=== PATIENT | female | born 1960 | race Caucasian/White ===

== ENCOUNTER 2018-10-12 11:19 | Emergency (ER) | payer OTHER ==
[2018-10-12 11:41] VITALS: TEMP 98.2; BMI 21.9
[2018-10-12] MEDS ORDERED: SODIUM CHLORIDE 0.9% 1000 ML INFUS.BAG IV ONE (12:25)
--- NOTE | 2018-10-12 12:39 | PDOC ---
Documentation entered by Francisca Hopkins SCRIBE, acting as scribe for Ebony Henry MD. Ebony Henry MD: This documentation has been prepared by the Sandeep rincon Brenda, SCRIBE, under my direction and personally reviewed by me in its entirety. I confirm that the documentation accurately reflects all work, treatment, procedures, and medical decision making performed by me. History of Present Illness - General Chief Complaint: Pain Stated Complaint: R/O UTI Time Seen by Provider: 10/12/18 12:08 History Source: Patient Exam Limitations: Language Barrier - History of Present Illness Initial Comments: 10/12/18 12:34 The patient is a year old female, with a significant PMH of sjogrens syndrome, Lupus, immunosuppression, NIDDM, TIA, hemorrhoids, fibromyalgia, hypothyroid, CAD, autoimmune thyroiditis, TIA, rheumatoid arthritis, pseudotumor cerebri, platelet aggregation disorder (3 blood transfusion, platelet transfusions), who presents to the emergency department with 1 week of vaginal and rectal bleeding. As per patient, she was sent to the [facility] from [facility], 2 months ago, who advised her to get a second opinion due to the inability to further treatments, and for better medical care. The patient reports seeing a Clerk Entry [employer] while being in [place], who stated that the excessive bleeding was related to medications. As per patient, her normal platelet levels ly around 100. The patient denies chest pain, shortness of breath, headache and dizziness. Denies fever, chills, nausea, vomiting, diarrhea and constipation. Allergies: Penicillins Past surgical history: Hysterectomy. Social history: No tobacco use or alcohol use. PCP: Currently does not have one, possibly in [facility]. Medications: Protonix pantoprazole 40 mg phenergan 25 mg Cell cept mycophenolate 500 mg Plaquenil hydroxy chloroquine 200 mg predinosone 20 mg 5 mg fiorcet Butabital 50 mg tencon 50 305 mg gabapentin 800 mg singulair montelukast HCL 10 mg glucophase metformin HCL 500 mg mezclizine HCL 25 mg banofen 50 mg sertiline 100 mg alprazolan 1 mg clonazepan 0.5mg zoldipen tartrate 5mg estazolam 2 mg oxycodone - acetaminophen Past History - Past Medical History Allergies/Adverse Reactions: Allergies Allergy/AdvReac Type Severity Reaction Status Date / Time Penicillins Allergy Swelling Verified 10/12/18 11:57 COPD: No Diabetes: Yes HTN: (hypo) Other medical history: Lupus, - Immunization History Immunization Up to Date: No - Suicide/Smoking/Psychosocial Hx Smoking History: Never smoked Hx Alcohol Use: No Drug/Substance Use Hx: No Review of Systems - Review of Systems Able to Perform ROS?: Yes Comments:: 10/12/18 12:34 GENERAL/CONSTITUTIONAL: No fever or chills. No weakness. HEAD, EYES, EARS, NOSE AND THROAT: No change in vision. No ear pain or discharge. No sore throat. CARDIOVASCULAR: No chest pain or shortness of breath. RESPIRATORY: No cough, wheezing, or hemoptysis. GASTROINTESTINAL: (+) rectal Bleeding. No nausea, vomiting, diarrhea or constipation. GENITOURINARY: (+) Vaginal bleeding. No dysuria, frequency, or change in urination. MUSCULOSKELETAL: No joint or muscle swelling or pain. No neck or back pain. SKIN: No rash NEUROLOGIC: No headache, vertigo, loss of consciousness, or change in strength/ sensation. ENDOCRINE: No increased thirst. No abnormal weight change. HEMATOLOGIC/LYMPHATIC: No anemia, easy bleeding, or history of blood clots. ALLERGIC/IMMUNOLOGIC: No hives or skin allergy. *Physical Exam - Vital Signs Last Vital Signs Temp Pulse Resp BP Pulse Ox 98.2 F 82 16 88/64 L 96 10/12/18 11:35 10/12/18 11:35 10/12/18 11:35 10/12/18 11:35 10/12/18 11:35 - Physical Exam Comments: 10/12/18 12:36 awake alert lungs clear bilat heart rrr no mrg ab soft nt nd ext wwp no edema. no calf tenderness. skin warm and dry. nuero alert oriented x 3. 10/12/18 14:55 vaginal exam dry external labial skin, no vaginal blood , rectum no rectal blood. ED Treatment Course - LABORATORY CBC & Chemistry Diagram: 10/12/18 12:30 10/12/18 12:30 Medical Decision Making - Medical Decision Making 10/12/18 12:37 58 yo F wit h/o sjogrens, RA SLE, prior tia, cerebritis, psuedotumor, and dysfunctional platelets here with c/o vaginal and rectal bleeding. does have h/ o prior bleeding needing transfusion. recently moved to [facility] from [place] 08/2018 . hasn't established care in [place] yet. does feel dizzy. h/o prior hystercetomy. h/o hemorrhoids. plan labs type and screen, pelvic and rectal exam. pt will likley require admission for transfusion, hypotensive in triage. 10/12/18 14:17 pt cbc normal platelets normal. 10/12/18 15:43 t labs normal troponin negative. ua negative for infection. pt baseline bp 90' s systolic. given fu appointment [facility], will call pt. also given referral for rheumatology, gynecology, *DC/Admit/Observation/Transfer Diagnosis at time of Disposition: Hemorrhoids, Dizziness - Discharge Dispostion Disposition: HOME Decision to Admit order: No - Referrals Referrals: Ivan Torres MD [Staff Physician] - Andrei Arora MD [Staff Physician] - Felix Butterfield MD [Staff Physician] - - Patient Instructions Printed Discharge Instructions: Anemia: How Food and Vitamins Can Help Additional Instructions: you need to follow up with a pressfitter see referral information for dr Arora, you should also see internal medicine doctor. [facility] will call to arrange an appointment with you in the next week. return for any worsening dizziness, fever chest pain or any concerns. - Post Discharge Activity
[2018-10-12 13:20] LABS: BASO % 0.5 % (0-2.0); EOS % 0.3 % (0-4.5); HEMOGLOBIN 13.4 GM/dL (10.7-15.3); LYMPH % 17.2 % (8-40); MCH 31.3 pg (25.7-33.7); MCHC 34.3 g/dl (32.0-36.0); MEAN CELL VOLUME 91.1 fl (80-96); MEAN PLT VOLUME 10.3 fl (7.5-11.1); MONO % 3.9 % (3.8-10.2); NEUT % 78.1 % (42.8-82.8); PLATELET COUNT 192 K/MM3 (134-434); RBC 4.28 M/mm3 (3.60-5.2); RDW 13.1 % (11.6-15.6); WHITE BLOOD COUNT 6.3 K/mm3 (4.0-10.0)
[2018-10-12 13:22] LABS: INR 1.05 (0.83-1.09); PROTHROMBIN TIME (PATIENT) 12.4 SEC (9.7-13.0)
[2018-10-12 13:24] LABS: ACTIVATED PTT 35.6 SECONDS (25.2-36.5)
[2018-10-12 13:31] LABS: ALBUMIN 4.4 g/dl (3.4-5.0); BILIRUBIN,TOTAL 0.4 mg/dL (0.2-1); BLOOD UREA NITROGEN 11.5 mg/dL (7-18); CALCIUM 9.1 mg/dL (8.5-10.1); CREATININE 0.8 mg/dL (0.55-1.3); POTASSIUM 4.1 mmol/L (3.5-5.1); TOT PROT 6.8 g/dl (6.4-8.2)
[2018-10-12 15:13] LABS: URINE APPEARANCE CLEAR; URINE BILIRUBIN NEGATIVE (NEGATIVE); URINE COLOR YELLOW; URINE GLUCOSE (UA) NEGATIVE (NEGATIVE); URINE KETONE NEGATIVE (NEGATIVE); URINE LEUK ESTERASE NEGATIVE (NEGATIVE); URINE NITRITE NEGATIVE (NEGATIVE); URINE PROTEIN NEGATIVE (NEGATIVE); URINE UROBILINOGEN 0.2 mg/dL (0.2-1.0)
[2018-10-12 15:44] VITALS: BP 97/65; PULSE 79
== END 2018-10-12 16:26 | disposition home or self-care (01) ==
LOC: JER 11:19
PROC: 3E0337Z Introduction of Electrolytic and Water Balance Substance into Peripheral Vein, Percutaneous Approach (ICD-10-PCS; principal; 2018-10-12)
DX: R42 Dizziness and giddiness (principal); K64.9 Unspecified hemorrhoids; M06.9 Rheumatoid arthritis, unspecified; M32.9 Systemic lupus erythematosus, unspecified; E03.9 Hypothyroidism, unspecified; E11.9 Type 2 diabetes mellitus without complications
CPT/HCPCS: 36415; 80053; 81003; 84484; 85025; 85610; 85730; 86850; 86900; 86901; 87086; 99283-25; J7030

== ENCOUNTER 2018-11-14 11:42 | Observation (INO) | payer OTHER | END 2018-11-16 10:45 | disposition home or self-care (01) | LOC: JER 11:42 → JERBED 15:24 → J5S 20:11 → J4W 20:24 ==

== ENCOUNTER 2019-10-20 17:13 | Inpatient (IN) | payer OTHER ==
[2019-10-20] MEDS ORDERED: ACETAMINOPHEN 1000 MG/100 ML VIAL (NON FORMULARY) IVPB ONE (17:54)
--- NOTE | 2019-10-20 18:03 | PDOC ---
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 Endorses mildly blurring of vision. Denies f/c. Denies new numbness, tingling, weakness. Denies urinary and bowel incontinence. Was seen by eye doctor / ophtho 4 days prior and found to have eye findings concerning for increased ICP. Dr. Sarmiento is pt's neuro. PCN allergy. Past History - Medical History Allergies/Adverse Reactions: Allergies Allergy/AdvReac Type Severity Reaction Status Date / Time gluten Allergy Verified 10/20/19 17:14 Penicillins Allergy Swelling Verified 10/20/19 17:14 Home Medications: Ambulatory Orders Acetaminophen/Caffeine/Butalb [Fioricet Tablets] 1 tab PO Q4H PRN 10/12/18 Baclofen 50 mg PO DAILY 10/12/18 Butalbital/Acetaminophen [Tencon 50-325 mg Tablet] 1 each PO DAILY 10/12/18 Clonazepam 0.5 mg PO DAILY 10/12/18 Gabapentin 800 mg PO DAILY 10/12/18 Meclizine HCl 25 mg PO DAILY 10/12/18 Metformin HCl [Glucophage] 500 mg PO DAILY 10/12/18 Montelukast Sodium [Singulair] 10 mg PO DAILY 10/12/18 Mycophenolate Mofetil [Cellcept] 500 mg PO DAILY 10/12/18 Pantoprazole Sodium [Protonix] 40 mg PO DAILY 10/12/18 Prednisone 5 mg PO DAILY 10/12/18 Promethazine HCl [Phenergan] 25 mg RC DAILY 10/12/18 Zolpidem Tartrate [Ambien] 5 mg PO HS 10/12/18 Valacyclovir HCl [Valtrex -] 500 mg PO BID #8 tablet 11/15/18 predniSONE [Deltasone -] 50 mg PO DAILY #10 tablet 11/15/18 COPD: No Diabetes: Yes HTN: (hypo) - Surgical History Neurologic Surgery: Yes (SHUNT) - Immunization History Immunization Up to Date: No - Psycho-Social/Smoking History Smoking History: Never smoked Have you smoked in the past 12 months: No - Substance Abuse Hx (Audit-C & DAST Scrn) How often the patient has a drink containing alcohol: Never Score: In Men: 4 or > Positive; In Women: 3 or > Positive: 0 Screen Result (Pos requires Nsg. Audit-10AR): Negative In the last yr the pt used illegal drug/Rx for NonMed reason: No Score: Yes response is considered Positive: 0 Screen Result (Positive result requires Nsg. DAST-10): Negative Review of Systems - Review of Systems Comments:: 10/20/19 22:19 CONSTITUTIONAL: Denies F / C HEENT: + headache, mild visual blurring (x1 week) RESP: Denies SOB, cough, orthopnea, RUIZ CARD: Denies chest pain, palpitations GI: + n / v : Denies dysuria, hematuria, frequency NEURO: + chronic left sided motor and sensory deficits s/p CVA MSK: Denies back pain SKIN: Denies rashes *Physical Exam - Vital Signs Last Vital Signs Temp Pulse Resp BP Pulse Ox 98.1 F 82 18 99/60 99 10/20/19 17:15 10/20/19 17:15 10/20/19 17:15 10/20/19 17:15 10/20/19 17:15 - Physical Exam 10/20/19 22:20 GEN: Well appearing, NAD, comfortable. AAOx3. HEENT: NC/AT, EOMI, PERRL, CN II-XII grossly intact EXCEPT CN V no sensation on left. No facial asymmetry. Moist mucous membranes. Normal voice. Supple neck w/ FROM. CV: S1/S2, RRR, no m/r/g LUNG: CTAB, no wheezes, crackles, rales, rhonchi. GI: mild epigastric ttp o/w soft, ndnt, +BS, no guarding, no rebound MSK: No obvious deformities of all extremities. SKIN: Warm, dry, no rashes appreciated. PSYCH: Normal mood and affect. NEURO: moving all extremities, 3/5 strength on the left UE and LE with 5/5 strength UE and LE; these are nonacute changes. Sensation diminished on the left, nonacute. Medical Decision Making - Medical Decision Making 10/20/19 22:20 10/20/19 17:54 59F w/ IIH s/p LP shunt sent in by PCP for 3 weeks of worsening headache and n/v today. Endorses mild vision blurring. Neuro exam unremarkable except for old deficits. Concerning presenting for elevated ICP. Consider headache. Unlikely infectious etiology. CT head Basic labs, coags Headache cocktail need to find out who placed LP shunt 10/20/19 19:15 signed out to night team Discharge - Discharge Information Problems reviewed: Yes Clinical Impression/Diagnosis: Headache - Follow up/Referral Referrals: Omari Orr MD [Primary Care Provider] - - Patient Discharge Instructions - Post Discharge Activity
--- NOTE | 2019-10-20 18:50 | PDOC ---
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 Sarmiento for 3 weeks of constant worsening apical headache with new onset nausea and vomiting today. Endorses mildly blurring of vision. Denies f/c. Denies new numbness, tingling, weakness. Denies urinary and bowel incontinence. 10/20/19 19:18 - Physicial Exam PE: 10/20/19 18:49 Agree with the resident's HPI and PE as documented in the electronic medical record. NAD, well appearing, Alert, oriented appropriately, CN II-XII grossly intact. EOMI, PERRL, nl conjunctiva, anicteric; neck supple. lungs clear, RRR, abdomen soft nontender. no rebound, guarding. Back nontender. midline lumbar scar. ARIZA x4, no focal neuro deficits. No peripheral edema. normal color for ethnicity, WWP. Strength prox and distally 4/5 in LUE (chronic). Sensation decreased in LLE (chronic). ARIZA x4. No cerebellar signs, no dysmetria, bilateral finger to nose and heel to villalba equal and symmetric. Speech clear. 10/20/19 19:06 10/20/19 19:18 - Medical Decision Making 10/20/19 18:49 Vital Signs Temp Pulse Resp BP Pulse Ox 98.1 F 82 18 99/60 99 10/20/19 17:15 10/20/19 17:15 10/20/19 17:15 10/20/19 17:15 10/20/19 17:15 DDX headache: migraine, tension, cluster headache, SAH, CVA, head bleed/ICH. hydrocephalus. MDM: The patient presents with an acute onset headache for 3 weeks in duration. Patient has no past history of headaches. There is not a history of anticoagulation, trauma, , cancer or immunocompromised state. Mental status was normal, no neurological deficits were noted. IV was placed and analgesia given , monitor sx 10/20/19 18:[address] no intracranial pathology is noted. No interval change from prior CAT scan. There is no ventricular catheter noted. Stable pituitary gland pt does not have vp respiratory shunt, likely lumbar shunt as she points to her lower back likely a lumbar drain? s/o to Dr Kirk pending labs/eval, possibly LP, neuro/NSG consult 10/21/19 07:40 Discharge - Discharge Information Problems reviewed: Yes Clinical Impression/Diagnosis: Headache Qualifiers: Headache type: unspecified Headache chronicity pattern: unspecified pattern Intractability: intractable Qualified Code(s): R51 - Headache Condition: Fair - Follow up/Referral - Patient Discharge Instructions - Post Discharge Activity
[2019-10-20] MEDS ORDERED: ACETAMINOPHEN INJECTION 100 ML IVPB ONE (19:10)
[2019-10-20] MEDS ORDERED: METOCLOPRAMIDE HCL INJECTION 10 MG/2 ML VIAL IVPUSH ONE (19:17)
[2019-10-20] MEDS ORDERED: METOCLOPRAMIDE HCL INJECTION 10 MG/2 ML VIAL ONE (19:57)
[2019-10-20] MEDS ORDERED: PROCHLORPERAZINE INJECTION 10 MG/2 ML VIAL IVPB ONE (20:49)
[2019-10-20] MEDS ORDERED: PROCHLORPERAZINE INJECTION 10 MG/2 ML VIAL ONE (21:12)
--- NOTE | 2019-10-20 21:16 | PDOC ---
*Physical Exam - Vital Signs Last Vital Signs Temp Pulse Resp BP Pulse Ox 98.1 F 86 18 116/72 99 10/20/19 17:15 10/20/19 20:41 10/20/19 20:41 10/20/19 20:41 10/20/19 20:41 ED Treatment Course - LABORATORY CBC & Chemistry Diagram: 10/21/19 01:30 10/21/19 01:30 - Medications Given in the ED: ED Medications Discontinued Medications Generic Name Dose Route Start Last Admin Trade Name Paige PRN Reason Stop Dose Admin Acetaminophen 1,000 mg 10/20/19 17:54 10/20/19 19:12 Ofirmev Injection - IVPB 10/20/19 17:55 1,000 mg ONCE ONE Administration Diphenhydramine HCl 12.5 mg 10/20/19 19:40 10/20/19 20:16 Benadryl Injection - IVPB 10/20/19 19:41 12.5 mg ONCE ONE Administration Metoclopramide HCl 10 mg 10/20/19 19:17 10/20/19 20:16 Reglan Injection - IVPUSH 10/20/19 19:18 10 mg ONCE ONE Administration Medical Decision Making - Medical Decision Making Pt was signed out by day team 59F PMH Idiopathic intracranial hypertension s/p LP shunt, SLE, sjogrens, 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 Was seen by eye doctor and told to have swollen capillaries b/l and eye exam suggestive of increased pressure. States that she started having similar headaches 12 years ago, was seen by doctor in [place] where she received 5 therapeutic lumbar punctures which mildly improved headaches. 7 years ago, she saw a different physician who performed a LP shunt with improvement in symptoms. States that she gets occasional headaches, milder in intensity that improve with over the counter pain medication. However, her current episode is described as worsening, not improved with OTC pain medications, a/w change in vision, and n/v today. 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 Archer who recommended Diamox 250mg BID, dexamethasone 6mg, did not recommend lumbar puncture. Pt follows with Dr. Sarmiento Pt states minimal improvement with compazine, will admit pt for intractable he adache. Pt agreed with plan. Disposition Admit Discharge - Discharge Information Problems reviewed: Yes Clinical Impression/Diagnosis: Headache Qualifiers: Headache type: unspecified Headache chronicity pattern: unspecified pattern Intractability: intractable Qualified Code(s): R51 - Headache Condition: Fair - Follow up/Referral - Patient Discharge Instructions - Post Discharge Activity
[2019-10-20] MEDS ORDERED: DEXAMETHASONE SOD PHOSPHATE 10 MG/1 ML VIAL IVPUSH ONE (23:08)
[2019-10-21] MEDS ORDERED: DEXAMETHASONE SOD PHOSPHATE 10 MG/1 ML VIAL ONE (00:17)
--- NOTE | 2019-10-21 01:22 | PN ---
Teaching Attending Note Name of Resident: Marek Woo ATTENDING PHYSICIAN STATEMENT I saw and evaluated the patient. I reviewed the resident's note and discussed the case with the resident. I agree with the resident's findings and plan as documented. SUBJECTIVE: Patient is a 59 year old woman with a PMH of Idiopathic intracranial hypert ension (s/p LP shunt), Penicillin allergy, SLE, Wren's palsy, Right side hearing impairment, Sjogren's syndrome and CVA with residual left hemiparesis sent by her PCP for 3 weeks of constant worsening apical headache with new onset nausea and vomiting today. Also has associated blurry vision L > R (although mildly improved with glasses) for 1 week. Was seen by eye doctor and told to have bilateral swollen capillaries and eye exam suggestive of increased pressure. States that she started having similar headaches 12 years ago, was seen by doctor in [place] where she received 5 therapeutic lumbar punctures which mildly improved headaches. Seven years ago, she saw a different physician who performed a LP shunt with improvement in symptoms. States that she gets occasional headaches, milder in intensity that improve with over the counter pain medication. However, her current episode is described as worsening, not improved with OTC pain medications. Patient denies chest pain, shortness of breath, abdominal pain, palpitations, dizziness, fever, chills, diarrhea, constipation, dysuria, frequency, urgency, melena, hematochezia or hematuria. Denies alcohol, tobacco or illicit drug use. No sick contacts or recent travels. Family history is unremarkable. OBJECTIVE: Alert Vital Signs Period Temp Pulse Resp BP Sys/Ponce Pulse Ox Last 24 Hr 98.1 F 82-86 18-18 99-116/60-72 99-99 HEENT: No Jaundice, eye redness or discharge, PERRLA, Left facial droop, Normocephalic, atraumatic. External ears are normal; right side hearing impaired. No nasal discharge. Neck: Supple, nontender. No palpable adenopathy or thyromegaly. No JVD Chest: Good effort. Clear to auscultation and percussion. Heart: Regular. No S3, rub or murmur Abdomen: Not distended, soft, nontender and no HSM. No rebound or guarding. Normal bowel sounds. Ext: Peripheral pulses intact. No leg edema. Skin: Warm and dry. No petechiae, rash or ecchymosis. Neuro: Alert. Oriented x3. Left hemiparesis with decreased sensation. Psych: Appropriate mood and affect. Good insight. Home Medications Medication Instructions Recorded Acetaminophen/Caffeine/Butalb 1 tab PO Q4H PRN 10/12/18 [Fioricet Tablets] Baclofen 50 mg PO DAILY 10/12/18 Butalbital/Acetaminophen [Tencon 1 each PO DAILY 10/12/18 50-325 mg Tablet] Clonazepam 0.5 mg PO DAILY 10/12/18 Gabapentin 800 mg PO DAILY 10/12/18 Meclizine HCl 25 mg PO DAILY 10/12/18 Metformin HCl [Glucophage] 500 mg PO DAILY 10/12/18 Montelukast Sodium [Singulair] 10 mg PO DAILY 10/12/18 Mycophenolate Mofetil [Cellcept] 500 mg PO DAILY 10/12/18 Pantoprazole Sodium [Protonix] 40 mg PO DAILY 10/12/18 Prednisone 5 mg PO DAILY 10/12/18 Promethazine HCl [Phenergan] 25 mg RC DAILY 10/12/18 Zolpidem Tartrate [Ambien] 5 mg PO HS 10/12/18 Valacyclovir HCl [Valtrex -] 500 mg PO BID #8 tablet 11/15/18 predniSONE [Deltasone -] 50 mg PO DAILY #10 tablet 11/15/18 Current Medications Generic Name Dose Route Start Last Admin Trade Name Freq PRN Reason Stop Dose Admin Acetazolamide 250 mg 10/21/19 23:09 Diamox - PO 10/21/19 23:10 ONCE ONE ASSESSMENT AND PLAN: 1. Intractable headache/Idiopathic intracranial hypertension - No evidence of acute intracranial pathology on noncontrast head CT scan. No venticular catheter noted!. Will get serum prolactin level to rule out enlargement of the pituitary gland. ER staff prescribed Tylenol, Benadryl, Dexamethasone, Diamox, Reglan and Compazine for the patient. EKG shows NSR at 65/minute and QTc [address]-T wave changes. Initial troponin is negative. Will get brain MRI with MR venography, consult Opthalmology, consult Interventional Radiology for lumbar puncture, treat with Diamox 500 mg bid, use Tylenol for pain control, Compazine for nausea, do neurochecks and implement fall/aspiration/seizure precautions. Consult PT/Neurology. CMP and CBC from 10/13/2019 were normal. Will get repeat CBC, CMP; get CXR and urinalysis. Viral testing for COVID-19 ordered and patient placed on airborne, droplet and contact isolation. 2. DVT prophylaxis - Lovenox 40 mg SQ q 24 hours. 3. Advance directives - Full code
--- NOTE | 2019-10-21 01:47 | HP ---
CHIEF COMPLAINT: intractible ocular headaches PCP: HISTORY OF PRESENT ILLNESS: Ms. 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 Pseudotumor cerebrii s/p shunt, lupus, sjogrens, RA presenting to the ED for a complaint of ocular headaches for the past [address] Sarmiento who recommended preforming a shunt study but was delayed due to insurance approval and suggested arrival to the ED for neurological work up. The patient reports loss of peripheral vision and blurry vision that has progressed. She reports seeing an opthamologist and received results for her eye exam but does not know the final results. The patient denies any progressive neurological weakness aside from the L sided weakness secondary to CVA. The patient reports multiple episodes of nausea and vomiting secondary to headache. AOX4, patient states she cannot move her eyes laterally. Her headache does not go away denies blurry vision or progressive vision loss. The patient endorses greater symptomatic relief in her pain with ED treatment of acetazolamide, diamox, and clompazine . ER course was notable for: (1) Head Ct - negative for acute pathology (2) (3) Recent Travel: PAST MEDICAL HISTORY: PAST SURGICAL HISTORY: 28 years ago she received a hysterectomy 6 years ago she received shunt for increased intra cranial pressure in [place] Social History: Smoking: none Alcohol: none Drugs: none Allergies gluten Allergy (Verified 10/20/19 17:14) Penicillins Allergy (Verified 10/20/19 17:14) Swelling HOME MEDICATIONS: Home Medications Medication Instructions Recorded Acetaminophen/Caffeine/Butalb 1 tab PO Q4H PRN 10/12/18 [Fioricet Tablets] Baclofen 50 mg PO DAILY 10/12/18 Butalbital/Acetaminophen [Tencon 1 each PO DAILY 10/12/18 50-325 mg Tablet] Clonazepam 0.5 mg PO DAILY 10/12/18 Gabapentin 800 mg PO DAILY 10/12/18 Meclizine HCl 25 mg PO DAILY 10/12/18 Metformin HCl [Glucophage] 500 mg PO DAILY 10/12/18 Montelukast Sodium [Singulair] 10 mg PO DAILY 10/12/18 Mycophenolate Mofetil [Cellcept] 500 mg PO DAILY 10/12/18 Pantoprazole Sodium [Protonix] 40 mg PO DAILY 10/12/18 Prednisone 5 mg PO DAILY 10/12/18 Promethazine HCl [Phenergan] 25 mg RC DAILY 10/12/18 Zolpidem Tartrate [Ambien] 5 mg PO HS 10/12/18 Valacyclovir HCl [Valtrex -] 500 mg PO BID #8 tablet 11/15/18 predniSONE [Deltasone -] 50 mg PO DAILY #10 tablet 11/15/18 REVIEW OF SYSTEMS CONSTITUTIONAL: Absent: fever, chills, diaphoresis, generalized weakness, malaise, loss of appetite, weight change CARDIOVASCULAR: Absent: chest pain, syncope, palpitations, irregular heart rate, lightheadedness, peripheral edema RESPIRATORY: Absent: cough, shortness of breath, dyspnea with exertion, orthopnea, wheezing, stridor, hemoptysis GASTROINTESTINAL: Absent: abdominal pain, abdominal distension, nausea, vomiting, diarrhea, constipation, melena, hematochezia GENITOURINARY: Absent: dysuria, frequency, urgency, hesitancy, hematuria, flank pain, genital pain MUSCULOSKELETAL: Absent: myalgia, arthralgia, joint swelling, back pain, neck pain SKIN: Absent: rash, itching, pallor NEUROLOGIC: headache, L sided residual weakness PHYSICAL EXAMINATION Vital Signs - 24 hr 10/20/19 10/20/19 17:15 20:41 Temperature 98.1 F Pulse Rate 82 Pulse Rate [ 86 Left] Respiratory 18 18 Rate Blood Pressure 99/60 Blood Pressure 116/72 [Left Arm] O2 Sat by Pulse 99 99 Oximetry (%) GENERAL: Awake, alert, and fully oriented, in no acute distress. HEAD: Normal with no signs of trauma. LUNGS: Breath sounds equal, clear to auscultation bilaterally. No wheezes, and no crackles. No accessory muscle use. HEART: Regular rate and rhythm, normal S1 and S2 without murmur, rub or gallop. ABDOMEN: Soft, nontender, not distended, normoactive bowel sounds, no guarding, no rebound, no masses. No hepatomegaly or splenomegaly. MUSCULOSKELETAL: Normal range of motion at all joints. No bony deformities or tenderness. No CVA tenderness. UPPER EXTREMITIES: 2+ pulses, warm, well-perfused. No cyanosis. No clubbing. No peripheral edema. LOWER EXTREMITIES: 2+ pulses, warm, well-perfused. No calf tenderness. No peripheral edema. NEUROLOGICAL: Cranial nerves II-XII intact. Normal speech. headache, L sided residual weakness ASSESSMENT/PLAN: Ms. 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 Pseudotumor cerebrii s/p shunt, lupus, sjogrens, RA presenting to the ED for a complaint of ocular headaches for the past [address] Sarmiento who recommended preforming a shunt study but was delayed due to insurance approval and suggested arrival to the ED for neurological work up. 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 No venticular catheter noted!. Will get serum prolactin level to rule out enlargement of the pituitary gland. - ED Spoke with Dr. Pedersen who recommended Diamox 250mg BID, dexamethasone 6mg, did NOT recommend lumbar puncture - ER staff prescribed Tylenol, Benadryl, Solumedrol, Diamox, Reglan and Compazine for the patient. - mri W MR VENOGRAPHY ordered - day team needs to bring opthamologist to evaluate findings - diamox 500bid - decadron dcd - UA - consulted dr pedersen for suggestions about LP - continue tylenol and compazine Viral testing for COVID-19 ordered and patient placed on airborne, droplet and contact isolation. 2. DVT prophylaxis - Lovenox 40 mg SQ q 24 hours. 3. Advance directives - Full code ATTENDING PHYSICIAN STATEMENT I saw and evaluated the patient. I reviewed the resident's note and discussed the case with the resident. I agree with the resident's findings and plan as documented. SUBJECTIVE: OBJECTIVE: ASSESSMENT AND PLAN:
[2019-10-21 02:01] LABS: BASO % 0.8 % (0-2.0); EOS % 0.7 % (0-4.5); HEMATOCRIT 41.7 % (32.4-45.2); HEMOGLOBIN 13.7 GM/dL (10.7-15.3); LYMPH % 37.4 % (8-40); MCH 30.5 pg (25.7-33.7); MCHC 32.8 g/dl (32.0-36.0); MONO % 5.5 % (3.8-10.2); NEUT % 55.6 % (42.8-82.8); PLATELET COUNT 199 K/MM3 (134-434); RBC 4.48 M/mm3 (3.60-5.2); RDW 13.5 % (11.6-15.6); WHITE BLOOD COUNT 4.6 K/mm3 (4.0-10.0)
[2019-10-21 02:28] LABS: BILIRUBIN,TOTAL 0.3 mg/dL (0.2-1); CALCIUM 9.5 mg/dL (8.5-10.1); CREATININE 1.1 mg/dL (0.55-1.3); POTASSIUM 3.8 mmol/L (3.5-5.1); TOT PROT 7.5 g/dl (6.4-8.2)
[2019-10-21 02:43] LABS: BLOOD UREA NITROGEN 18.2 mg/dL (7-18)
[2019-10-21 07:40] VITALS: BMI 21.4
[2019-10-21] MEDS ORDERED: PT OWN MED DRAWER 7, Y5N ONE (08:56)
[2019-10-21] MEDS: ENOXAPARIN NA (PORCINE) 40 MG/0.4 ML DISP.SYRIN SQ SCH (09:29)
[2019-10-21] MEDS ORDERED: oxyCODONE HCL 5 MG TABLET PO PRN (12:15)
--- NOTE | 2019-10-21 12:16 | CON.NEURO ---
Consult Consult Specialty:: [facility] Reason for Consultation:: DAVIS - History of Present Illness History of Present Illness: 59 year sold woman with history of 1. ch headache on Diamopx ?? B Intracranial hypertension not obese older than usual 20-40 comes in with intarcatable headcahe Head 2. DM 3. 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 Endocrine: Yes: Diabetes Mellitus - Alcohol/Substance Use Hx Alcohol Use: No - Smoking History Smoking history: Never smoked Have you smoked in the past 12 months: No Home Medications - Allergies Allergies/Adverse Reactions: Allergies Allergy/AdvReac Type Severity Reaction Status Date / Time gluten Allergy Verified 10/20/19 17:14 Penicillins Allergy Swelling Verified 10/20/19 17:14 - Home Medications Home Medications: Ambulatory Orders Acetaminophen/Caffeine/Butalb [Fioricet Tablets] 1 tab PO Q4H PRN 10/12/18 Baclofen 50 mg PO DAILY 10/12/18 Butalbital/Acetaminophen [Tencon 50-325 mg Tablet] 1 each PO DAILY 10/12/18 Clonazepam 0.5 mg PO DAILY 10/12/18 Gabapentin 800 mg PO DAILY 10/12/18 Meclizine HCl 25 mg PO DAILY 10/12/18 Metformin HCl [Glucophage] 500 mg PO DAILY 10/12/18 Montelukast Sodium [Singulair] 10 mg PO DAILY 10/12/18 Mycophenolate Mofetil [Cellcept] 500 mg PO DAILY 10/12/18 Pantoprazole Sodium [Protonix] 40 mg PO DAILY 10/12/18 Prednisone 5 mg PO DAILY 10/12/18 Promethazine HCl [Phenergan] 25 mg RC DAILY 10/12/18 Zolpidem Tartrate [Ambien] 5 mg PO HS 10/12/18 Valacyclovir HCl [Valtrex -] 500 mg PO BID #8 tablet 11/15/18 predniSONE [Deltasone -] 50 mg PO DAILY #10 tablet 11/15/18 Family Medical History Family History: Unremarkable Review of Systems - Review of Systems Neurological: reports: Dizziness, Headache, Numbness, Parasthesia Physical Exam-Neuro Vital Signs: Vital Signs Temperature 98.7 F 10/21/19 09:03 Pulse Rate 91 H 10/21/19 09:03 Respiratory Rate 16 10/21/19 09:03 Blood Pressure 106/69 10/21/19 09:03 O2 Sat by Pulse Oximetry (%) 96 10/21/19 09:03 Constitutional: Yes: Well Nourished Neck: Yes: WNL Labs: CBC, BMP 10/21/19 01:30 10/21/19 01:30 - Neuro Exam Eyes: Yes: PERRLA Speech: WNL Dominant Hand: Right Cranial Nerves II-XII Intact: Yes Gag: Present DTR's: 1+ Left Bicep, 1+ Right Bicep, 1+ Left Tricep, 1+ Right Tricep Response to light touch: Normal Response to pain prick: Normal Response to temperature: Abnormal Response to vibration: Abnormal Motor Strength: 3/5: Left Arm, Right Arm, Left Leg, Right Leg Gait: Deferred Imaging - Results Cat Scan: Image Reviewed MRI: Image Reviewed Problem List - Problems (1) Headache Code(s): R51 - HEADACHE Qualifiers: Headache type: unspecified Headache chronicity pattern: unspecified pattern Intractability: intractable Qualified Code(s): R51 - Headache (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 diagnosis of psuedotumor Migraine headache Intractable Migraine 1. Arrange for LP under fluro 2. Diamox same 3. Start Topamax 50 mg po qhs 4. Optho eval 5. Avoid steroids 6. Diary 7. Magnesium 400 mg po qd Thanks Tori Stephenson MD Neurology [phone]
[2019-10-21 15:18] LABS: PH,URINE 6.5 (5.0-8.0); URINE APPEARANCE CLEAR; URINE BILIRUBIN NEGATIVE (NEGATIVE); URINE COLOR YELLOW; URINE GLUCOSE (UA) NEGATIVE (NEGATIVE); URINE KETONE NEGATIVE (NEGATIVE); URINE LEUK ESTERASE NEGATIVE (NEGATIVE); URINE NITRITE NEGATIVE (NEGATIVE); URINE PROTEIN NEGATIVE (NEGATIVE); URINE UROBILINOGEN 0.2 mg/dL (0.2-1.0)
[2019-10-21] MEDS ORDERED: MAGNESIUM OXIDE 400 MG TABLET (FP) PO SCH (18:00)
[2019-10-21] MEDS ORDERED: MAGNESIUM OXIDE 400 MG TABLET (FP) PO ONE (18:00)
[2019-10-21] MEDS: TOPIRAMATE 25 MG TABLET PO SCH (20:08)
[2019-10-21] MEDS ORDERED: acetaZOLAMIDE 250 MG TABLET PO ONE (23:09)
[2019-10-22 07:30] LABS: HEMATOCRIT 38.2 % (32.4-45.2); HEMOGLOBIN 12.7 GM/dL (10.7-15.3); MCH 30.4 pg (25.7-33.7); MCHC 33.4 g/dl (32.0-36.0); MEAN CELL VOLUME 91.1 fl (80-96); MEAN PLT VOLUME 9.2 fl (7.5-11.1); PLATELET COUNT 187 K/MM3 (134-434); RBC 4.19 M/mm3 (3.60-5.2); RDW 13.2 % (11.6-15.6); WHITE BLOOD COUNT 4.6 K/mm3 (4.0-10.0)
[2019-10-22 07:36] LABS: INR 1.07 (0.83-1.09); PROTHROMBIN TIME (PATIENT) 12.6 SEC (9.7-13.0)
[2019-10-22 07:56] LABS: ALBUMIN 4.3 g/dl (3.4-5.0); BILIRUBIN,TOTAL 0.6 mg/dL (0.2-1); BLOOD UREA NITROGEN 9.6 mg/dL (7-18); CALCIUM 9.1 mg/dL (8.5-10.1); MAGNESIUM 2.3 mg/dL (1.8-2.4); PHOSPHOROUS 4.5 mg/dL (2.5-4.9); POTASSIUM 3.9 mmol/L (3.5-5.1); TOT PROT 6.6 g/dl (6.4-8.2)
[2019-10-22] MEDS ORDERED: PT OWN MED DRAWER 7, Y5N ONE (08:39)
[2019-10-22] MEDS: TOPIRAMATE 25 MG TABLET PO SCH (09:28)
[2019-10-22] MEDS: ENOXAPARIN NA (PORCINE) 40 MG/0.4 ML DISP.SYRIN SQ SCH (09:29)
[2019-10-22 13:23] VITALS: BP 112/71; PULSE 85; TEMP 98.6
--- NOTE | 2019-10-22 13:51 | PN ---
Progress Note, Physician History of Present Illness: Headache is better On Diamox On Topamax Will gett claudio LP as OP - Current Medication List Current Medications: Active Medications Enoxaparin Sodium (Lovenox -) 40 mg SQ DAILY [facility] Last Admin: 10/22/19 09:29 Dose: 40 mg Documented by: Oxycodone HCl (Roxicodone -) 5 mg PO Q4H PRN PRN Reason: PAIN LEVEL 6-10 Last Admin: 10/21/19 12:23 Dose: 5 mg Documented by: Topiramate (Topamax -) 50 mg PO DAILY [facility] Last Admin: 10/22/19 09:28 Dose: 50 mg Documented by: - Objective Vital Signs: Vital Signs Temperature 98.6 F 10/22/19 13:22 Pulse Rate 85 10/22/19 13:22 Respiratory Rate 16 10/22/19 13:22 Blood Pressure 112/71 10/22/19 13:22 O2 Sat by Pulse Oximetry (%) 98 10/22/19 13:22 Constitutional: Yes: Well Nourished Eyes: Yes: WNL Neurological: Yes: Alert, Oriented, Cran Nerves II-XII Intact ...Motor Strength: WNL Labs: CBC, BMP 10/22/19 06:22 10/22/19 06:22 INR, PTT INR 1.07 (0.83-1.09) 10/22/19 06:22 Problem List - Problems (1) Headache Code(s): R51 - HEADACHE Qualifiers: Headache type: unspecified Headache chronicity pattern: unspecified pattern Intractability: intractable Qualified Code(s): R51 - Headache (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
--- NOTE | 2019-10-22 18:51 | DS ---
Physical Exam: SUBJECTIVE: No overnight events. Patient seen and examined. Endorses headache improved. OBJECTIVE: Vital Signs Period Temp Pulse Resp BP Sys/Ponce Pulse Ox Last 24 Hr 97.8 F-98.6 F 78-85 16-17 108-124/67-73 98-99 PHYSICAL EXAM GENERAL: The patient is awake, alert, and fully oriented, HEAD: Normal with no signs of trauma. EYES: PERRL, extraocular movements intact, sclera anicteric, conjunctiva clear. ENT: Ears normal, nares patent, oropharynx clear without exudates, moist mucous membranes. LUNGS: Breath sounds equal, clear to auscultation bilaterally, no wheezes, no crackles, no accessory muscle use. HEART: Regular rate and rhythm, S1, S2 without murmur, rub or gallop. ABDOMEN: Soft, nontender, nondistended, normoactive bowel sounds EXTREMITIES: 2+ pulses, warm, well-perfused, no edema. NEUROLOGICAL: Cranial nerves II through XII grossly intact. Normal speech, gait not observed. 5/5 strength R UE & LE. 4/5 strength L UE, LE consistent w/ residual weakness s/p CVA. sensation intact throughout PSYCH: anxious SKIN: Warm, dry, normal turgor, no rashes or lesions noted. LABS Laboratory Results - last 24 hr 10/20/19 10/22/19 10/22/19 03:30 06:22 06:22 WBC 4.6 RBC 4.19 Hgb 12.7 Hct 38.2 MCV 91.1 MCH 30.4 MCHC 33.4 RDW 13.2 Plt Count 187 MPV 9.2 PT with INR 12.60 INR 1.07 Sodium Potassium Chloride Carbon Dioxide Anion Gap BUN Creatinine Est GFR (CKD-EPI)AfAm Est GFR (CKD-EPI)NonAf Random Glucose Calcium Phosphorus Magnesium Total Bilirubin AST ALT Alkaline Phosphatase Total Protein Albumin COVID-19 (LEV) Not detected 10/22/19 06:22 WBC RBC Hgb Hct MCV MCH MCHC RDW Plt Count MPV PT with INR INR Sodium 140 Potassium 3.9 Chloride 110 H Carbon Dioxide 21 Anion Gap 9 BUN 9.6 Creatinine 1.0 Est GFR (CKD-EPI)AfAm 72.42 Est GFR (CKD-EPI)NonAf 62.49 Random Glucose 96 Calcium 9.1 Phosphorus 4.5 Magnesium 2.3 Total Bilirubin 0.6 AST 14 L ALT 23 Alkaline Phosphatase 83 Total Protein 6.6 Albumin 4.3 COVID-19 (LEV) HOSPITAL COURSE: 59 YO F PMH RA, sjorgrens, lupus, CVA in Apr (residual L sideded weakness), pseudotumor cerebrii s/p shunt p/w headaches for [address] scan was negative for acute pathology; pituitary gland showed a slightly convex superior border. Pt was instructed to f/u with neurologist outpt for prolactin levels. MRI shows no acute pathology. Pt was given acetazolamide & compazine in ED. Neurology ev aluated the patient. She was given diamox, magnesium oxide, dexamethasone, & topomax. Pt's symptoms improved. Pt is stable for discharge. Pt discharged on diamox 250 mg BID, Topiramate 75 mg BID, and instructions to f/u with her neurologist for evaluation for LP. Date of Admission:10/21/19 Date of Discharge: 10/22/19 Minutes to complete discharge: 43 Discharge Summary Problems reviewed: Yes Reason For Visit: HEADACHE, SYSTEMIC LUPUS ERYTHEMATOSUS, Condition: Improved - Instructions Diet, Activity, Other Instructions: You came to the hospital for headaches for 3 weeks associated nausea, vomiting and blurry vision. Imaging of your head did NOT show acute findings. You were given medications for migraine, to decrease pressure in your head, and nausea/vomiting. Your symptoms improved. You are stable for discharge. MEDICATIONS Please START taking diamox 250 mg twice a day (every 12 hours). Please CONTINUE your home medication of Topiramate 75 mg twice a day. Please continue taking your other home medications as prescribed. FOLLOW-UP Please follow-up with -your primary care physician, Dr. Orr, to discuss your recent hospitalization and for general health maintenance. -your neurologist, Dr. Sarmiento, for further evaluation of your headache, and for evaluation for a lumbar puncture. Imaging of your head also showed a pituitary gland that was minimally enlarged. Please follow-up with Dr. Sarmiento for evaluation for this finding with blood work for prolactin levels. ADDITIONAL INSTRUCTIONS Please call 911 or come directly to the emergency department if you experience loss of alertness/awareness, loss of function, chest pain, unusual headache, vision change, difficulty speaking, numbness, tingling, chest pain, shortness of breath, unusual bleeding, or any alarming symptoms Referrals: Aleksandr Sarmiento MD [Staff Physician] - Omari Orr MD [Primary Care Provider] - Disposition: HOME - Home Medications Comprehensive Discharge Medication List: Ambulatory Orders Gabapentin 800 mg PO BID 10/12/18 Metformin HCl [Glucophage] 500 mg PO BID 10/12/18 Montelukast Sodium [Singulair] 10 mg PO DAILY 10/12/18 Prednisone 5 mg PO DAILY 10/12/18 Clonazepam 0.25 mg PO BID 10/22/19 Hydroxychloroquine Sulfate [Plaquenil] 200 mg PO BID 10/22/19 Levothyroxine [Synthroid -] 0.1 mg PO DAILY 10/22/19 Meloxicam 15 mg PO DAILY 10/22/19 Mycophenolate Mofetil [Cellcept] 250 mg PO TID 10/22/19 Topiramate 75 mg PO BID 10/22/19 acetaZOLAMIDE [Diamox -] 250 mg PO BID #30 tablet 10/22/19 This patient is new to me today: Yes Date on this admission: 10/22/19 Emergency Visit: Yes ED Registration Date: 10/21/19 Care time: The patient presented to the Emergency Department on the above date and was hospitalized for further evaluation of their emergent condition. Critical Care patient: No - Discharge Referral Referred to [facility] Med P.C.: No ATTENDING PHYSICIAN STATEMENT I saw and evaluated the patient. I reviewed the resident's note and discussed the case with the resident. I agree with the resident's findings and plan as documented. SUBJECTIVE: OBJECTIVE: ASSESSMENT AND PLAN:
--- NOTE | 2019-10-23 21:56 | EKG ---
Test Reason : Blood Pressure : / mmHG Vent. Rate : 065 BPM Atrial Rate : 065 BPM P-R Int : 130 ms QRS Dur : 086 ms QT Int : 430 ms P-R-T Axes : 070 060 062 degrees QTc Int : 447 ms NORMAL SINUS RHYTHM NORMAL ECG WHEN COMPARED WITH ECG OF 14-NOV-2018 20:49, NO SIGNIFICANT CHANGE WAS FOUND Confirmed by BENJAMIN SOTO MD ([id number]) on 10/23/2019 9:55:57 PM Referred By: Confirmed By:BENJAMIN SOTO MD
== END 2019-10-22 17:05 | disposition home or self-care (01) | DRG 103 ==
LOC: JER 17:13 → JERBED 10-21 00:44 → J7W 10-21 04:08
PROVIDERS: ADMIT Internal Medicine; ATTEND Internal Medicine
DX: G43.909 Migraine, unspecified, not intractable, without status migrainosus (principal); I69.354 Hemiplegia and hemiparesis following cerebral infarction affecting left non-dominant side; Q87.19 Other congenital malformation syndromes predominantly associated with short stature; G52.9 Cranial nerve disorder, unspecified; R42 Dizziness and giddiness; M32.9 Systemic lupus erythematosus, unspecified; G93.2 Benign intracranial hypertension; E11.9 Type 2 diabetes mellitus without complications; R11.2 Nausea with vomiting, unspecified
CPT/HCPCS: 36415; 70450-TC; 70552-TC; 80053; 81003; 83735; 84100; 85025; 85027; 85610; 93005; 93010; 99285-25; A9579; J0131; J1100; U0003

== ENCOUNTER 2023-07-16 11:42 | Emergency (ER) | payer OTHER ==
[2023-07-16 12:01] VITALS: BP 114/75; PULSE 90; RESP 17; TEMP 98.6; BMI 25.6
== END 2023-07-16 14:20 | disposition home or self-care (01) ==
LOC: JERFT 11:42
DX: J06.9 Acute upper respiratory infection, unspecified (principal); R05.9 Cough, unspecified; R09.82 Postnasal drip; Z20.822 Contact with and (suspected) exposure to COVID-19
CPT/HCPCS: 0241U-QW; 71046-TC-FY; 87651; 99284-25